=== PATIENT | female | born 1980 | race Caucasian/White ===

== ENCOUNTER 2023-12-24 11:05 | Emergency (ER) | payer OTHER, SELFPAY ==
[2023-12-24] VITALS (15 sets, daily range): BP systolic 107–113; BP diastolic 61–78; PULSE 63–82; RESP 18; TEMP 36.7; O2SAT 96–99; BMI 23.6
--- NOTE | 2023-12-24 12:21 | US_ITS ---
Patient: JACKIE STORY Facility:?[facility] Patient ID:[id number] Site Patient ID:?[id number] Site :?[id number] Study:?US-OB Pelvis TV pelvic-12/24/2023 1:56:22 PM Ordering Physician:Jorge Final Report: INDICATION: Pelvic pain. COMPARISON: None available. TECHNIQUE: Endovaginal grayscale and spectral Doppler pelvic ultrasound. FINDINGS: LMP: 12/16/2023 Uterus: Measures 6.0 x 5.1 x 8.8cm. Incidental anterior uterine body subserosal fibroid measuring 1.4 cm. Anterior lower uterine segment scar associated with small simple clustered inclusion cysts. Unremarkable cervix. Please note that US is insensitive for detection of epithelial lesions of the cervix, compared to physical examination. Endometrial stripe: Measures 9mm. Uniform in thickness. Right Ovary: Measures 2.2 x 1.6 x 3.1cm. Morphologically normal. Spectral Doppler demonstrates normalarterialblood flow. Left Ovary: Measures 2.5 x 2.5 x 2.8cm and 9mL. Morphologically normal. Spectral Doppler demonstrates normalarterialblood flow. Pelvic fluid: No significant pelvic ascites. Small volume free fluid within physiologic limits of normal. IMPRESSION: No sonographic findings to explain pelvic pain. Incidental findings described above. Dictated by Prasanna Livingston MD @ 12/24/2023 2:26:08 PM Signed by:?Prasanna Livingston MD @12/24/2023 2:26:08 PM (Electronic Signature)
[2023-12-24] MEDS: 0.9 % SODIUM CHLORIDE 1000 ml 1,000 ML IV (12:28)
[2023-12-24] MEDS: ONDANSETRON 2 MG/ML inj 4 MG IVP (12:28)
[2023-12-24 12:34] LABS: Lactate* 1.4 mmol/L (0.5-1.9)
[2023-12-24 12:35] LABS: Basophils Absolute Auto 0.05 K/uL (0.00-0.30); Basophils Percent Auto 0.9 % (0.0-3.0); Eosinophils Absolute Auto 0.15 K/uL (0.00-0.50); Eosinophils Percent Auto 2.6 % (0.0-7.0); Hematocrit 41.6 % (33.0-51.0); Hemoglobin* 13.1 gm/dL (12.0-16.0); Immature Granulocytes Abs Auto 0.01 K/uL (0.00-0.30); Immature Granulocytes Pct Auto 0.2 %; Lymphocytes Absolute Auto 1.57 K/uL (0.90-2.90); Lymphocytes Percent Auto 26.8 % (20-44); Mean Corpuscular HGB Conc 32 gm/dL (32-36); Mean Corpuscular Hemoglobin 28 pg (26-34); Mean Corpuscular Volume 87 fL (80-100); Monocytes Percent Auto 9.2 % (0.0-11.0); Neutrophils Absolute Auto 3.53 K/uL (1.7-7.0); Neutrophils Percent Auto 60.3 % (42.0-72.0); Platelet Count* 293 K/uL (140-440); RDW Coefficient of Variation % 15.1 % (11.5-15.5); Red Blood Count 4.76 m/uL (4.00-5.20); White Blood Count* 5.85 K/uL (4.50-11.00)
[2023-12-24 12:46] LABS: Slide Review Reflex No
[2023-12-24 12:52] LABS: Chloride* 104 mmol/L (96-114); Sodium* 137 mmol/L (135-149)
[2023-12-24 12:55] LABS: Creatinine* 0.8 mg/dL (0.5-1.5); Est. Creatinine Clearance* 93.78; Estimated Glomerular Filt Rate 93 ml/min
[2023-12-24 12:56] LABS: Anion Gap 7 mEq/L (7-15); Blood Urea Nitrogen* 8 mg/dL (5-24); Calcium* 8.7 mg/dL (8.4-10.6); Carbon Dioxide* 26 mmol/L (20-32); Glucose* 91 mg/dL (60-115)
[2023-12-24 12:59] LABS: C Reactive Protein* < 0.5 mg/dL (0.5-1.0)
--- NOTE | 2023-12-24 14:05 | ED.GENADULT ---
HPI - General Adult General Chief complaint: Abdominal Pain Stated complaint: pelvic pain, diarrhea/vomiting Time Seen by Provider: 12/24/23 11:58 Source: patient Mode of arrival: ambulatory Limitations: no limitations History of Present Illness HPI narrative: 43-year-old female coming in today with pelvic pain and vomiting. Patient states that she was diagnosed with pelvic inflammatory disease 5 days ago and was started on doxycycline and Flagyl. She states she has been vomiting every day since been having multiple episodes of diarrhea daily. She denies any fevers or chills. She is hungry and would like to eat but knows that the minute that she does it comes right back up again. She denies pain with urination. She states that the pelvic pain she was feeling has been unchanged. She states that she had an ultrasound done at [place] but that they were unable to visualize her ovaries. Patient states that she is in so much pain that she has a hard time getting through her day. Related Data Home Medications Medication Instructions Recorded Confirmed doxycycline hyclate 100 mg capsule 100 mg PO BID 12/24/23 12/24/23 metronidazole 500 mg tablet 500 mg PO BID 12/24/23 12/24/23 Allergies Allergy/AdvReac Type Severity Reaction Status Date / Time Penicillins AdvReac Anaphylaxis Verified 07/20/23 16:06 Review of Systems Status of ROS: Reports: 10 or more systems reviewed and unremarkable except as noted in History and below Exam Narrative: Exam Narrative: Well-nourished well-developed patient in no acute distress. Alert and oriented. Answers questions appropriately. Mood and affect are appropriate. Thoughts are goal oriented and rational. No tangential or magical thinking noted. Patient speaks in full sentences without needing to catch her breath. Patient is not appear ill or toxic. Her vital signs are all within normal limits. HEENT: Normocephalic atraumatic. Pupils are equally round reactive to light. Extraocular muscles are intact. Conjunctivae are moist without any icterus noted. Moist mucous membranes. Posterior pharynx is normal. Neck is soft without any lymphadenopathy or thyromegaly. No masses are appreciated. Cardiovascular: Heart is regular rate and rhythm S1 and S2 are present without any murmurs. Lungs: Clear to auscultation bilaterally no wheezes rhonchi or rales are appreciated. Patient takes deep breaths without any discomfort. Abdomen: Soft and nondistended with normal bowel sounds. No guarding or rebound. No masses or organomegaly appreciated. The abdominal exam is really unremarkable, she has no significant tenderness noted anywhere. She states that pushing down right over the bladder actually makes it feel better. Skin: Well perfused without any obvious rashes. Const: Vital Signs, click to edit/add: Vital Signs - 24 hr 12/24/23 11:47 Temperature 98.1 F Pulse Rate [Pulse Oximeter] 82 Respiratory Rate 18 Blood Pressure [Ri ght Upper Arm] 108/61 Pulse Oximetry 99 Oxygen Delivery Me thod Room Air Course Course ED Course: Patient was monitored here for just about 3 hours, she did not have any vomiting or diarrhea. IV was established and she received a L of normal saline and IV Zofran. Her CBC is entirely unremarkable. Normal chemistries. CRP less than 0.5. She was unable to give a urine or stool sample while she was here. Ultrasound of the pelvis was done: Unremarkable. Both ovaries visualized. Vital Signs Vital signs: Initial Vital Signs Temperature 98.1 F 12/24/23 11:47 Temperature Source Temporal Artery Scan 12/24/23 11:47 Pulse Rate 82 12/24/23 11:47 Respiratory Rate 18 12/24/23 11:47 Blood Pressure 108/61 12/24/23 11:47 Blood Pressure Mean 76 12/24/23 11:47 Pulse Oximetry 99 12/24/23 11:47 Oxygen Delivery Method Room Air 12/24/23 11:47 Vital Signs Temperature 98.1 F 12/24/23 11:47 Pulse Rate 82 12/24/23 11:47 Respiratory Rate 18 12/24/23 11:47 Blood Pressure 108/61 12/24/23 11:47 Pulse Oximetry 99 12/24/23 11:47 Oxygen Delivery Method Room Air 12/24/23 11:47 Temperature 98.1 F 12/24/23 11:47 Pulse Rate 82 12/24/23 11:47 Respiratory Rate 18 12/24/23 11:47 Blood Pressure 108/61 12/24/23 11:47 Pulse Oximetry 99 12/24/23 11:47 Oxygen Delivery Method Room Air 12/24/23 11:47 Medications Administered Medications: Discontinued Medications Generic Name Dose Route Start Last Admin Trade Name Freq PRN Reason Stop Dose Admin Sodium Chloride 1,000 mls @ 1,000 mls/hr 12/24/23 12:30 12/24/23 13:41 0.9 % Sodium Chloride 1000 Ml IV 12/24/23 13:29 Infused .Q1H NAVEEN Infusion Ondansetron HCl 4 mg 12/24/23 12:21 12/24/23 12:28 Ondansetron 2 Mg/Ml Inj IVP 12/24/23 12:22 4 mg ONCE ONE Administration Medical Decision Making MDM Narrative Medical decision making narrative: 43-year-old female with pelvic pain, recent diagnosis of pelvic inflammatory disease antibiotic therapy, normal lab work and ultrasound. Patient recommended to stay on her antibiotics as prescribed. Will send her home with Zofran and some tablets of [place]. I did look her up on the [facility], no recent narcotic use. She will follow-up with her primary care obgyn hospitalist physician as needed. She will be sent home with a kit for stool collection, C diff pending. Lab Data Lab results reviewed: Yes I reviewed the patient's lab results Labs: Lab Results 12/24/23 Range/Units 12:15 WBC 5.85 (4.50-11.00) K/uL RBC 4.76 (4.00-5.20) m/uL Hgb 13.1 (12.0-16.0) gm/dL Hct 41.6 (33.0-51.0) % MCV 87 (80-100) fL MCH 28 (26-34) pg MCHC 32 (32-36) gm/dL RDW Coeff of Mag 15.1 (11.5-15.5) % Plt Count 293 (140-440) K/uL Neut % (Auto) 60.3 (42.0-72.0) % Lymph % (Auto) 26.8 (20-44) % [place] % (Auto) 9.2 (0.0-11.0) % Eos % (Auto) 2.6 (0.0-7.0) % Baso % (Auto) 0.9 (0.0-3.0) % Neut # (Auto) 3.53 (1.7-7.0) K/uL Lymph # (Auto) 1.57 (0.90-2.90) K/uL [place] # (Auto) 0.50 (0.00-0.90) K/UL Eos # (Auto) 0.15 (0.00-0.50) K/uL Baso # (Auto) 0.05 (0.00-0.30) K/uL Abs Immat Gran (auto) 0.01 (0.00-0.30) K/uL Imm/Tot Granulo (auto) 0.2 % Sodium 137 (135-149) mmol/L Potassium 4.0 (3.6-5.1) mmol/L Chloride 104 (96-114) mmol/L Carbon Dioxide 26 (20-32) mmol/L Anion Gap 7 (7-15) mEq/L BUN 8 (5-24) mg/dL Creatinine 0.8 (0.5-1.5) mg/dL Estimated Creat Clear 93.78 Estimated GFR 93 ml/min Glucose 91 (60-115) mg/dL Lactate 1.4 (0.5-1.9) mmol/L Calcium 8.7 (8.4-10.6) mg/dL C-Reactive Protein < 0.5 L (0.5-1.0) mg/dL Imaging Data Pelvic ultrasound: Attestation: I have reviewed the pertinent imaging results. Radiologist's impression: Study:?US-OB Pelvis TV pelvic-12/24/2023 1:56:22 PM Ordering Physician:Jorge Final Report: INDICATION: Pelvic pain. COMPARISON: None available. TECHNIQUE: Endovaginal grayscale and spectral Doppler pelvic ultrasound. FINDINGS: LMP: 12/16/2023 Uterus: Measures 6.0 x 5.1 x 8.8cm. Incidental anterior uterine body subserosal fibroid measuring 1.4 cm. Anterior lower uterine segment scar associated with small simple clustered inclusion cysts. Unremarkable cervix. Please note that US is insensitive for detection of epithelial lesions of the cervix, compared to physical examination. Endometrial stripe: Measures 9mm. Uniform in thickness. Right Ovary: Measures 2.2 x 1.6 x 3.1cm. Morphologically normal. Spectral Doppler demonstrates normalarterialblood flow. Left Ovary: Measures 2.5 x 2.5 x 2.8cm and 9mL. Morphologically normal. Spectral Doppler demonstrates normalarterialblood flow. Pelvic fluid: No significant pelvic ascites. Small volume free fluid within physiologic limits of normal. IMPRESSION: No sonographic findings to explain pelvic pain. Incidental findings described above. Discharge Plan Discharge Clinical Impression: Pelvic pain Patient Disposition: Home, Self-Care Condition: Stable Additional Instructions: Finish antibiotics as prescribed. Follow-up with OBGYN or your primary care provider as needed. 8 tablets of Alton sent to [facility]. Ten tablets of Zofran sent to [facility]. Prescriptions: No Action doxycycline hyclate 100 mg capsule 100 mg PO BID metronidazole 500 mg tablet 500 mg PO BID Follow Up/Referrals: Provider,Not a Local [Primary Care Provider] - Stand Alone Forms: [facility] Info Instructions
== END 2023-12-24 14:45 | disposition home or self-care (01) ==
PROVIDERS: Emergency Provider Family Medicine
DX: R10.2 Pelvic and perineal pain (principal)
CPT/HCPCS: 36415; 76856; 80048; 81001; 81025; 83605; 85025; 86140; 87086; 87493; 96361; 96374; 99284; J2405; J7030

== ENCOUNTER 2024-07-02 00:05 | Emergency (ER) | payer OTHER, SELFPAY ==
[2024-07-02 00:08] VITALS: BP 125/92; PULSE 110; RESP 18; TEMP 37.1; O2SAT 97; BMI 22.9
--- NOTE | 2024-07-02 00:23 | CRLHL7_ITS ---
For Patients: As a result of the Century Cures Act, medical imaging exams and procedure reports are released immediately into your electronic medical record. You may view this report before your referring provider. If you have questions, please contact your health care provider. INDICATION: Right lower quadrant pain. TECHNIQUE: CT abdomen and pelvis acquired with 76 cc Isovue 370 IV contrast. COMPARISON: None. FINDINGS: Lower chest: Scattered atelectasis. Liver: Tiny hypodensities, too small to characterize. Normal in size and attenuation. No suspicious masses. Gallbladder and bile ducts: Unremarkable. No stones or inflammation. No biliary dilatation. Pancreas: Unremarkable. No mass or inflammation. Spleen: Unremarkable. Normal in size. No masses. Adrenal glands: Unremarkable. No nodules. Kidneys: Tiny cortical hypodensities, too small to characterize.. No suspicious masses, stones, or hydronephrosis. GI tract: Unremarkable. Normal in caliber. No sign of mass or inflammation. Normal appendix. Vasculature: Abdominal aorta is normal in caliber. Mesenteric arteries are patent. Lymph nodes: No lymphadenopathy. Peritoneum/Abdominal Wall: Unremarkable. No sign of mass or infiltration. No free air or significant free fluid. Pelvis: Mildly distended bladder with circumferential wall thickening. Recommend correlation with urinalysis if urinary tract infection is suspected. Bones: Unremarkable for age. IMPRESSION: No acute intra-abdominal/pelvic abnormality including appendicitis as questioned. Please note that all CT scans at this facility use dose modulation, iterative reconstruction, and/or weight-based dosing when appropriate to reduce radiation dose to as low as reasonably achievable. Dictated by Alton Barrera MD @ 07/02/2024 1:05:15 AM (Electronically Signed)
--- NOTE | 2024-07-02 00:30 | ED.GENADULT ---
HPI - General Adult General Chief complaint: Abdominal Pain Stated complaint: Abdominal Pain Time Seen by Provider: 07/02/24 00:09 Source: patient and EMS Mode of arrival: EMS Limitations: no limitations History of Present Illness HPI narrative: 44-year-old female presents the emergency department after calling 911 for abdominal pain that has been present for about 30 minutes. Pain in the lower pelvic area. Was given 100 mcg of fentanyl via EMS which is quite a bit. Does admit to drinking 8 beers tonight. Denies injury or trauma. Reports that pain is similar to when she has had ovarian cysts in the past. No bloody stools, no vaginal discharge. Last menstrual period was about 4 weeks ago, denies chance of . No unusual vaginal discharge or dysuria. Pain is in the right and left lower quadrant areas, does not radiate. No prior history of abdominal surgeries per reports that she has had 1 gynecological surgery for a and 1 hysteroscopy to remove a polyp 5 years ago. No prior colonoscopy. No fevers, vomiting or diarrhea. Last bowel movement was today and was normal. She did not try any interventions prior to calling 911. Reports that she has been diagnosed with ovarian cysts within the last 6 months or so, has never required surgery for these. No recent illness. Past medical history denied, no major long-term health problems per her report. No long-term medications. Allergy to penicillin. Prior report and surgical history as well as hysteroscopy as noted above. ROS is notable for the abdominal symptoms only, otherwise denies times 12 systems. Related Data Home Medications ?Medication ?Instructions ?Recorded ?Confirmed doxycycline hyclate 100 mg capsule 100 mg PO BID 12/24/23 12/24/23 metronidazole 500 mg tablet 500 mg PO BID 12/24/23 12/24/23 Allergies Allergy/AdvReac Type Severity Reaction Status Date / Time Penicillins AdvReac Anaphylaxis Verified 07/02/24 00:58 [facility] Social History Smoking Status: Unknown if ever smoked How often do you have a drink containing alcohol: 2-3 times a week AUDIT-C Alcohol total score: 3 Non-prescribed substance use: denies use Exam Const: Vital Signs, click to edit/add: Vital Signs - 24 hr 07/02/24 00:08 Temperature 98.7 F Pulse Rate [Left P ulse Oximeter] 110 H Respiratory Rate 18 Blood Pressure [Ri ght Upper Arm] 125/92 H Pulse Oximetry 97 Oxygen Delivery Me thod Room Air Documenting provider has reviewed patient's vital signs: yes Common normals: no apparent distress General appearance: cooperative and comfortable Other: Smells of alcohol but seems to be a good historian. HENMT: Common normals: normocephalic, moist oral mucous membranes and oropharynx normal Head and scalp: normocephalic Other: Poor dental condition. Eye: Common normals: conjunctivae normal General eye: normal appearance of both eyes Conjunctiva: conjunctiva(e) normal Neck & C-Spine: Common normals: full ROM and no lymphadenopathy Resp: Common normals: normal respiratory effort, no use of accessory muscles and clear to auscultation bilaterally Effort & inspection: able to speak in complete sentences Auscultation: clear to auscultation bilaterally Cardio: Common normals: regular rate, regular rhythm, S1 normal heart sound, S2 normal heart sound and no murmurs Rate: regular rate Rhythm: regular rhythm Heart sounds: S1 normal and S2 normal GI: Common normals: Normal to inspection, nondistended, normoactive bowel sounds present, soft to palpation, no hepatosplenomegaly and no masses Palpation: soft and no hepatosplenomegaly Other: Tender to palpation of right lower quadrant without rebound tenderness or guarding. Repeat examination over same area yield same results. : Common normals: no CVA tenderness Bladder/kidney exam: no CVA tenderness Back & Pelvis: Common normals: no CVA tenderness Extremity: Common normals: normal to inspection and normal capillary refill Neuro: Motor exam: strength 5/5 throughout and no movement abnormalities noted Psych: Appearance: grossly normal Insight: fair Judgement: fair Skin: Common normals: no rashes or lesions noted General skin exam: no rashes or lesions noted Course Course ED Course: Mildly intoxicated 44-year-old female with 1 hour of abdominal pain. Pain centers in the right lower quadrant on exam. Differential diagnosis including appendicitis, ovarian cyst, ectopic , menstrual cramps, bowel obstruction, colitis, unusual presentation of pancreatitis, kidney stone, atypical gallbladder disease, amongst others. Pain is rather focal, recommend CT of the abdomen and pelvis. Typical intra-abdominal labs. test. Await findings. Reevaluation(s) Time of Reevaluation #1: 01:30 Reevaluation #1: Patient continues to report that her pain is 10 10 but she is resting comfortably in the room, on her phone. There has been no vomiting, no stools or other perceived signs of worsening here in the ED. Labs are very reassuring. CT reviewed with patient. Suspect that her pain is from combination of gas and menstrual cramps. She will be given ibuprofen 600 mg p.o. x1. She says that her boyfriend can come get her. I did let her know that her blood alcohol level is almost 3 times the legal limit and she is not to drive for the next 6 hours. After that, she is cleared to return to all typical duties. She should follow-up with a primary care provider for symptoms not improving in 3-5 days alarm symptoms like high fevers, persistent vomiting, bloody stools reviewed as indications to come back to the ED. She verbalizes understanding and agreement. Written instructions provided. Vital Signs Vital signs: Initial Vital Signs Temperature 98.7 F 07/02/24 00:08 Temperature Source Temporal Artery Scan 07/02/24 00:08 Pulse Rate 110 H 07/02/24 00:08 Pulse Rhythm Regular 07/02/24 00:08 Respiratory Rate 18 07/02/24 00:08 Blood Pressure 125/92 H 07/02/24 00:08 Blood Pressure Mean 103 07/02/24 00:08 Blood Pressure Position Sitting 07/02/24 00:08 Pulse Oximetry 97 07/02/24 00:08 Oxygen Delivery Method Room Air 07/02/24 00:08 Vital Signs Temperature 98.7 F 07/02/24 00:08 Pulse Rate 110 H 07/02/24 00:08 Respiratory Rate 18 07/02/24 00:08 Blood Pressure 125/92 H 07/02/24 00:08 Pulse Oximetry 97 07/02/24 00:08 Oxygen Delivery Method Room Air 07/02/24 00:08 Temperature 98.7 F 07/02/24 00:08 Pulse Rate 110 H 07/02/24 00:08 Respiratory Rate 18 07/02/24 00:08 Blood Pressure 125/92 H 07/02/24 00:08 Pulse Oximetry 97 07/02/24 00:08 Oxygen Delivery Method Room Air 07/02/24 00:08 Medical Decision Making Lab Data Lab results reviewed: Yes I reviewed the patient's lab results Lab results narrative: Reassuring. No leukocytosis. Liver enzymes look good. CRP normal, electrolytes normal, no dehydration. No signs of bladder infection. Labs: Lab Results 07/02/24 07/02/24 Range/Units 00:10 00:20 WBC 9.83 (4.50-11.00) K/uL RBC 5.04 (4.00-5.20) m/uL Hgb 14.7 (12.0-16.0) gm/dL Hct 44.9 (33.0-51.0) % MCV 89 (80-100) fL MCH 29 (26-34) pg MCHC 33 (32-36) gm/dL RDW Coeff of Mag 13.0 (11.5-15.5) % Plt Count 330 (140-440) K/uL Neut % (Auto) 59.5 (42.0-72.0) % Lymph % (Auto) 30.3 (20-44) % [place] % (Auto) 7.1 (0.0-11.0) % Eos % (Auto) 1.7 (0.0-7.0) % Baso % (Auto) 0.5 (0.0-3.0) % Neut # (Auto) 5.84 (1.7-7.0) K/uL Lymph # (Auto) 2.98 H (0.90-2.90) K/uL [place] # (Auto) 0.70 (0.00-0.90) K/UL Eos # (Auto) 0.17 (0.00-0.50) K/uL Baso # (Auto) 0.05 (0.00-0.30) K/uL Abs Immat Gran (auto) 0.09 (0.00-0.30) K/uL Imm/Tot Granulo (auto) 0.9 % Sodium 137 (135-149) mmol/L Potassium 3.8 (3.6-5.1) mmol/L Chloride 105 (96-114) mmol/L Carbon Dioxide 21 (20-32) mmol/L Anion Gap 11 (7-15) mEq/L BUN 5 (5-24) mg/dL Creatinine 0.6 (0.5-1.5) mg/dL Estimated Creat Clear 123.74 Estimated GFR 113 ml/min Glucose 101 (60-115) mg/dL Lactate 2.0 H (0.5-1.9) mmol/L Calcium 9.1 (8.4-10.6) mg/dL Total Bilirubin 0.2 (0.1-1.5) mg/dL AST 29 (12-35) U/L ALT 19 (4-35) U/L Alkaline Phosphatase 89 (40-150) U/L C-Reactive Protein < 0.5 L (0.5-1.0) mg/dL Total Protein 7.4 (6.0-8.3) g/dL Albumin 4.5 (3.3-5.0) g/dL Lipase 63 (23-300) U/L Urine Color Yellow (Yellow) Urine Appearance Slightly Cloudy A (Clear) Urine pH 5.5 (5.0-8.5) Ur Specific [place] 1.010 (1.000-1.030) Urine Protein Negative (Negative) Urine Glucose (UA) Negative (Negative) Urine Ketones Negative (Negative) Urine Blood 1+ A (Negative) Urine Nitrite Negative (Negative) Urine Bilirubin Negative (Negative) Urine Urobilinogen 0.2 (0.2-1.0) Ur Leukocyte Esterase Negative (Negative) Urine RBC 0-2 (0-2) Urine WBC 0-2 (0-5) Ur Squamous Epith Cells Few (None-Few) Amorphous Sediment Few A (None) Urine Bacteria Few A (None) Urine Mucus Few A (None) Urine HCG, Qual Negative (Negative) Ethyl Alcohol 0.21 H (0.01-0.03) % Imaging Data CT scan - abdomen: Attestation: I have reviewed the pertinent imaging results. My impression: Uterus is a little thickened and heterogeneous, consistent with current phase of menstrual cycle. There is certainly some stool and gas in the colon but no signs of obstruction, appendicitis, ovarian cysts or other significant pathology. Radiologist's impression: FINDINGS: Lower chest: Scattered atelectasis. Liver: Tiny hypodensities, too small to characterize. Normal in size and attenuation. No suspicious masses. Gallbladder and bile ducts: Unremarkable. No stones or inflammation. No biliary dilatation. Pancreas: Unremarkable. No mass or inflammation. Spleen: Unremarkable. Normal in size. No masses. Adrenal glands: Unremarkable. No nodules. Kidneys: Tiny cortical hypodensities, too small to characterize.. No suspicious masses, stones, or hydronephrosis. GI tract: Unremarkable. Normal in caliber. No sign of mass or inflammation. Normal appendix. Vasculature: Abdominal aorta is normal in caliber. Mesenteric arteries are patent. Lymph nodes: No lymphadenopathy. Peritoneum/Abdominal Wall: Unremarkable. No sign of mass or infiltration. No free air or significant free fluid. Pelvis: Mildly distended bladder with circumferential wall thickening. Recommend correlation with urinalysis if urinary tract infection is suspected. Bones: Unremarkable for age. IMPRESSION: No acute intra-abdominal/pelvic abnormality including appendicitis as questioned. Please note that all CT scans at this facility use dose modulation, iterative reconstruction, and/or weight-based dosing when appropriate to reduce radiation dose to as low as reasonably achievable. Dictated by Alton Barrera MD @ 07/02/2024 1:05:15 AM Discharge Plan Discharge Clinical Impression: Bilateral lower abdominal pain Additional Instructions: As we discussed, your labs and CT scan look great. I suspect your pain is from a combination of gas pain and menstrual cramps. There are no signs of ovarian cysts, appendicitis, bowel obstructions, kidney stones, bladder infections, colitis or other abnormalities. Your blood alcohol level was almost 3 times the legal limit, but your liver seems to be functioning okay. I recommend Tylenol 1000 mg every 6 hours and/or ibuprofen 600 mg every 6 hours as needed for pain. He may use gentle gas age at relief tablets or stool softeners to help as well. Follow up with her primary care provider if things are not improving in 3-5 days. Your fully cleared to return to work later this morning without restrictions once you are sober. No driving for 6 hours. Activity Level: No Restrictions Discharge Diet: Regular Prescriptions: No Action doxycycline hyclate 100 mg capsule 100 mg PO BID metronidazole 500 mg tablet 500 mg PO BID Follow Up/Referrals: Provider,Not a Local [Primary Care Provider] - Stand Alone Forms: [facility] Info Instructions
[2024-07-02 00:35] LABS: Basophils Absolute Auto 0.05 K/uL (0.00-0.30); Basophils Percent Auto 0.5 % (0.0-3.0); Eosinophils Absolute Auto 0.17 K/uL (0.00-0.50); Eosinophils Percent Auto 1.7 % (0.0-7.0); Hematocrit 44.9 % (33.0-51.0); Hemoglobin* 14.7 gm/dL (12.0-16.0); Immature Granulocytes Abs Auto 0.09 K/uL (0.00-0.30); Immature Granulocytes Pct Auto 0.9 %; Lymphocytes Absolute Auto 2.98 K/uL (0.90-2.90); Lymphocytes Percent Auto 30.3 % (20-44); Mean Corpuscular HGB Conc 33 gm/dL (32-36); Mean Corpuscular Hemoglobin 29 pg (26-34); Mean Corpuscular Volume 89 fL (80-100); Monocytes Percent Auto 7.1 % (0.0-11.0); Neutrophils Absolute Auto 5.84 K/uL (1.7-7.0); Neutrophils Percent Auto 59.5 % (42.0-72.0); Platelet Count* 330 K/uL (140-440); Red Blood Count 5.04 m/uL (4.00-5.20); White Blood Count* 9.83 K/uL (4.50-11.00)
[2024-07-02 00:37] LABS: Slide Review Reflex No
[2024-07-02 00:37] LABS: Appearance Urine Slightly Cloudy (Clear); Bilirubin Urine Negative (Negative); Blood Urine 1+ (Negative); Color Urine Yellow (Yellow); Glucose Urine Negative (Negative); Ketones Urine Negative (Negative); Leukocyte Esterase Urine Negative (Negative); Nitrite Urine Negative (Negative); Protein Urine Negative (Negative); Urobilinogen Urine 0.2 (0.2-1.0); pH Urine 5.5 (5.0-8.5)
--- NOTE | 2024-07-02 00:40 | ED.NURSE ---
pt taken for CT
[2024-07-02 00:42] LABS: Ur HCG Qualitative* Negative (Negative)
[2024-07-02 00:46] LABS: Amorphous Sediment Urine Few; Bacteria Urine Few; Mucus Urine Few; RBC Urine 0-2 (0-2); Squamous Epithelial Cell Urine Few (None-Few); WBC Urine 0-2 (0-5)
[2024-07-02 00:47] LABS: Albumin* 4.5 g/dL (3.3-5.0); Chloride* 105 mmol/L (96-114); Potassium* 3.8 mmol/L (3.6-5.1); Sodium* 137 mmol/L (135-149)
[2024-07-02 00:49] LABS: Creatinine* 0.6 mg/dL (0.5-1.5); Est. Creatinine Clearance* 123.74; Estimated Glomerular Filt Rate 113 ml/min
[2024-07-02 00:50] LABS: Alkaline Phosphatase* 89 U/L (40-150); Anion Gap 11 mEq/L (7-15); Aspartate Amino Transferase* 29 U/L (12-35); Bilirubin Total* 0.2 mg/dL (0.1-1.5); Blood Urea Nitrogen* 5 mg/dL (5-24); Carbon Dioxide* 21 mmol/L (20-32); Glucose* 101 mg/dL (60-115); Lipase* 63 U/L (23-300); Total Protein* 7.4 g/dL (6.0-8.3)
[2024-07-02 00:51] LABS: Alanine Aminotransferase* 19 U/L (4-35); Calcium* 9.1 mg/dL (8.4-10.6); Ethanol* 0.21 % (0.01-0.03)
[2024-07-02 00:53] LABS: C Reactive Protein* < 0.5 mg/dL (0.5-1.0)
[2024-07-02] MEDS: IBUPROFEN 200 MG TABLET 600 MG PO (01:33)
== END 2024-07-02 01:37 | disposition home or self-care (01) ==
PROVIDERS: Emergency Provider Family Medicine; PCP Family Medicine
DX: R10.31 Right lower quadrant pain (principal); R10.32 Left lower quadrant pain
CPT/HCPCS: 36415; 74177; 80053; 81001; 81003; 81025; 82077; 83605; 83690; 85025; 86140; 87086; 99284; A9270; Q9967